=== PATIENT | female | born 1975 | race Hispanic/Latino ===

== ENCOUNTER 2022-05-25 09:01 | Day surgery (SDC) | payer BC ==
[~2022-05-25] VITALS: Ht 154.9 cm; Wt 62.6 kg
[~2022-05-25 09:01] MED LIST: SYNTHROID150 MCG PO
[2022-05-25 11:40] VITALS: BP 128/75
== END 2022-05-25 11:59 | disposition home or self-care (01) | DRG 395 ==
LOC: ENDO 09:01 → ORM 10:10 → ENDO 11:59
PROVIDERS: ATTEND Surgery
PROC: 0DJD8ZZ Inspection of Lower Intestinal Tract, Via Natural or Artificial Opening Endoscopic (ICD-10-PCS; principal; 2022-05-25)
DX: K64.8 Other hemorrhoids (principal); E03.9 Hypothyroidism, unspecified